=== PATIENT | male | born 1955 | race Hispanic/Latino ===

== ENCOUNTER → 2023-09-24 | Day surgery (SDC) | payer MEDICARE ==
[2023-09-18 12:29] LABS: BASOPHILS % 0.4 % (0.0-1.0); EOSINOPHILS # (AUTO) 0.1 (0.0-0.4); EOSINOPHILS % 1.2 % (0.0-6.0); HEMATOCRIT 43.8 % (38.2-49.6); HEMOGLOBIN 15.5 g/dL (14.0-18.0); LYMPHOCYTES % 27.2 % (18.0-39.1); MEAN CORPUSCULAR HEMOGLOBIN 30.3 pg (28-32); MEAN CORPUSCULAR HGB CONC 35.4 g/dL (31-35); MEAN CORPUSCULAR VOLUME 85.5 fL (81-99); MONOCYTES # (AUTO) 0.6 (0.2-0.8); MONOCYTES % 7.9 % (4.4-11.3); NEUTROPHILS # (AUTO) 4.6 (2.1-6.9); PLATELET COUNT 142 x10e3/uL (140-360); RED BLOOD COUNT 5.12 x10e6/uL (4.3-5.7); RED CELL DISTRIBUTION WIDTH 12.4 % (11.7-14.4); WHITE BLOOD COUNT 7.32 x10e3/uL (4.8-10.8)
[~2023-09-24] MED LIST: BUSPIRONE HCL10 MG PO; DIGOXIN125 MCG PO; ELIQUIS5 MG PO; FENTANYL CITRATE/PF 100MCG/2 ML INJ ONE; LACTATED RINGER'S 1,000 ML ONE; METHOCARBAMOL750 MG PO; METOPROLOL SUCC25 MG PO; MIDAZOLAM HCL 2 MG/2 ML VIAL ONE; NEURONTIN300 MG PO; OR PHACO EYE KIT ONE; PREOP PHACO EYE KIT ONE; TYLENOL #3 PO; TYLENOL EXTRA500 MG PO
[2023-09-24 10:47] VITALS: TEMP 97.1
[2023-09-24 11:07] VITALS: BP 125/90; PULSE 81; RESP 18; O2SAT 99
== END | disposition home or self-care (01) ==
LOC: OR 08:01
PROVIDERS: ATTEND Ophthalmology
DX: H25.12 Age-related nuclear cataract, left eye (principal); Z01.812 Encounter for preprocedural laboratory examination; I10 Essential (primary) hypertension; I49.9 Cardiac arrhythmia, unspecified; I11.0 Hypertensive heart disease with heart failure; I50.9 Heart failure, unspecified; I42.9 Cardiomyopathy, unspecified; M54.9 Dorsalgia, unspecified; K21.9 Gastro-esophageal reflux disease without esophagitis; M45.2 Ankylosing spondylitis of cervical region; F41.9 Anxiety disorder, unspecified; Z79.02 Long term (current) use of antithrombotics/antiplatelets; Z79.899 Other long term (current) drug therapy
CPT/HCPCS: 36415; 66984; 85025; J2250; J3010; J7121; V2632